=== PATIENT | male | born 1970 | race Caucasian/White ===

== ENCOUNTER 2021-11-08 07:06 | Emergency (ER) | payer OTHER ==
[2021-11-08] MEDS ORDERED: Sodium Chloride 0.9% 10 ML Syringe FLUSH PRN ×2 (07:50→08:38)
[2021-11-08] MEDS ORDERED: Ketorolac 30 MG/ML SDV IVPUSH ONE (08:23)
[2021-11-08] MEDS ORDERED: Iopamidol 612 MG/ML 100 ML Bottle IV PRN (08:38)
[2021-11-08] MEDS ORDERED: Sodium Chloride 0.9% 50 ML IV ONE (08:38)
[2021-11-08] MEDS ORDERED: methylPREDNISolone Sodium Succinate 125 MG/2 ML SDV IVPUSH ONE (09:06)
[2021-11-08] MEDS ORDERED: HYDROmorphone 0.5 MG/0.5 ML Syringe IVPUSH ONE (09:27)
== END 2021-11-08 09:53 | disposition home or self-care (01) ==
LOC: JP.ED 07:06
DX: K04.7 Periapical abscess without sinus (principal); Z79.899 Other long term (current) drug therapy; Z79.82 Long term (current) use of aspirin
CPT/HCPCS: 36415; 70491; 80048; 85025; 96374; 96375; 99284; J1170; J1885; J2930; J3490; Q9967